=== PATIENT | female | born 1945 | race Caucasian/White ===

== ENCOUNTER → 2022-05-26 | Day surgery (SDC) | payer MEDICARE, OTHER ==
[~2022-05-26] MED LIST: FENTANYL CITRATE/PF 100MCG/2 ML INJ ONE; IRON PO; LUNESTA3 MG PO; MIDAZOLAM HCL 2 MG/2 ML VIAL ONE; OR PHACO EYE KIT ONE; PREOP PHACO EYE KIT ONE; VITAMIN B-121000 MCG PO; VITAMIN B6100 MG/2.5 PO; VITAMIN C500 MG PO; VITAMIN D350 MCG PO; ZINC PO
[2022-05-26 13:30] VITALS: BP 134/55
== END | disposition home or self-care (01) ==
LOC: OR 09:31
PROVIDERS: ATTEND Ophthalmology
DX: H25.11 Age-related nuclear cataract, right eye (principal); D64.9 Anemia, unspecified; Z88.6 Allergy status to analgesic agent; Z88.8 Allergy status to other drugs, medicaments and biological substances
CPT/HCPCS: J2250; J3010; V2632